=== PATIENT | male | born 1965 | race African-American/Black ===

== ENCOUNTER 2025-02-23 07:46 | Emergency (ER) | payer OTHER ==
[~2025-02-23] VITALS: Ht 170.2 cm; Wt 116.1 kg
[2025-02-23] MEDS ORDERED: ESGIC 50-325-41 EACH PO (08:34)
[2025-02-23] MEDS ORDERED: IBUPROFEN600 MG PO (08:34)
[2025-02-23] MEDS ORDERED: DIPHENHYDRAMINE25 M2 PO (08:34)
[2025-02-23] MEDS: ONDANSETRON HCL INJ 2MG/ML 2ML 2 MG/ML VIAL IV ONE (09:10)
[2025-02-23] MEDS: DEXAMETHASONE SOD PHOS INJ 4 MG/ML SDV IV ONE (09:10)
[2025-02-23] MEDS: ACETAMINOPHEN 325 MG TAB PO ONE (09:10)
[2025-02-23] MEDS: KETOROLAC TROMETHAMINE 30 MG/ML VIAL IV STA (09:11)
[2025-02-23] MEDS: SODIUM CHLORIDE 0.9% 500ML 500 ML IV STA (09:11)
[2025-02-23 09:45] VITALS: PULSE 62; RESP 16; TEMP 97; O2SAT 100
== END 2025-02-23 09:45 | disposition home or self-care (01) ==
LOC: FSED 08:12
DX: G44.209 Tension-type headache, unspecified, not intractable (principal); Z85.46 Personal history of malignant neoplasm of prostate
CPT/HCPCS: 80053; 81003; 85025; 96374; 96375; 99284; J1100; J1885; J2405; J7040